=== PATIENT | female | born 1935 | race Caucasian/White ===

== ENCOUNTER 2017-04-19 19:31 | Emergency (ER) | payer MEDICARE, OTHER ==
[~2017-04-19] VITALS: Ht 167.6 cm; Wt 66.6 kg
[~2017-04-19 19:31] MED LIST: METOPROLOL; SIMVASTATIN
[2017-04-19 19:35] VITALS: Ht 167.6 cm; Wt 66.6 kg
--- NOTE | 2017-04-19 20:34 | ERD ---
ER Documentation Chief Complaint Chief Complaint toothache- molar pain HPI 81-year-old female presents emergency department for a right sided jaw pain/ mandibular pain for about 2 days. Pain on range of motion tenderness to palpation. Denies headache, dizziness, blurry vision, neck pain, throat pain, difficulty swallowing, trauma, injury, falls, shoulder pain, chest pain, back pain, abdominal pain, nausea, vomiting, diarrhea, loss of bowel bladder control , difficulty walking, numbness or tingling sensation, fever, chills. ROS All systems reviewed and are negative except as per history of present illness. Medications Home Meds Active Scripts Hydrocodone/Acetaminophen (Temple 5-325 Tablet) 1 Each Tablet, 1 TAB PO Q6H Y for PAIN, #5 TAB Prov:CHAITANYAJESUSITADEQUAN F 04/19/17 Acetaminophen* (Tylophen*) 500 Mg Capsule, 1 CAP PO Q6H Y for PAIN AND OR ELEVATED TEMP, #20 CAP Prov:PAULAILABANJADONAR F 04/19/17 Reported Medications [Metoprolol,Simvastat] No Conflict Check 06/09/10 Allergies Allergies: Coded Allergies: No Known Allergy (Unverified , 04/19/17) PMhx/Soc History of Surgery: Yes (HEART,IVON) Anesthesia Reaction: No Hx Neurological Disorder: No Hx Respiratory Disorders: No Hx Cardiac Disorders: Yes (HTN) Hx Psychiatric Problems: No Hx Miscellaneous Medical Probl: No Hx Alcohol Use: No Hx Substance Use: No Hx Tobacco Use: No Smoking Status: Never smoker Physical Exam Vitals Vital Signs Date Time Temp Pulse Resp B/P Pulse Ox O2 Delivery O2 Flow Rate FiO2 04/19/17 22:50 79 20 148/92 100 Room Air 04/19/17 19:35 97.4 91 20 175/90 100 Physical Exam Const: Well-appearing. Not in acute respiratory distress. Head: Atraumatic Eyes: Normal Conjunctiva. PERRLA. ENT: Normal External Ears, Nose and Mouth. No signs of tooth avulsions. No gingivitis. No tooth or gum abscess. Good and full range of motion of bilateral jaw/mandibles. No signs of dislocation. Neck: Full range of motion..~ No meningismus. No signs of meningeal irritation. Resp: Clear to auscultation bilaterally Cardio: Regular rate and rhythm, no murmurs Abd: Soft, non tender, non distended. Normal bowel sounds Skin: No petechiae or rashes Back: No midline or flank tenderness Ext: No cyanosis, or edema Neur: Awake and alert Psych: Normal Mood and Affect Results 24 hrs Current Medications Medications (Trade) Dose Ordered Sig/Rufina Route PRN Reason Start Time Stop Time Status Last Admin Dose Admin Acetaminophen (Tylenol Tab) 650 mg ONCE ONCE PO 04/19/17 21:00 04/19/17 21:01 DC 04/19/17 20:36 Acetaminophen/ Hydrocodone Bitart (Temple (5/325)) 1 tab ONCE ONCE PO 04/19/17 23:00 04/19/17 23:00 DC 04/19/17 22:51 Procedures/MDM X-ray of the mandible: No acute fracture dislocation. Unremarkable examination. Differential diagnosis: I have low suspicion for TMJ, mandibular fracture, meningitis, otitis media given the physical exam and x-ray results. Final diagnosis: Jaw pain. Follow-up with PCP in the next 3-4 days. PCP to refer patient to dentist in the next 3-4 days. Come back here in the emergency department for any new symptoms or any worsening of symptoms. All questions and concerns were answered. Patient verbalized understanding and agreed with the plan of care. Hemodynamically stable on discharge. Departure Diagnosis: Primary Impression: Jaw pain Condition: Stable Additional Instructions: Follow-up with PCP in the next 3-4 days. PCP to refer patient to dentist in the next 3-4 days. Come back here in the emergency department for any new symptoms or any worsening of symptoms. All questions and concerns were answered. Patient verbalized understanding and agreed with the plan of care DEQUAN BUSH Apr 19, 2017 20:34
[2017-04-19] MEDS ORDERED: ACETAMINOPHEN 325 MG TAB PO ONE (21:00)
--- NOTE | 2017-04-19 21:42 | RADRPT ---
PROCEDURE: XR minimal. CLINICAL INDICATION: mandibular pain/jaw pain TECHNIQUE: AP and lateral views of the minimal were performed. COMPARISON: None. FINDINGS: There is normal mineralization and alignment. No fracture or osseous lesion is identified. The joint s are normal. The soft tissues are unremarkable. IMPRESSION: No acute fracture or dislocation. Unremarkable examination. RPTAT: HBST .Nayan Lacy MD, MD Date Time Electronically viewed and signed by .Nayan Lacy MD, on 04/19/2017 21:42 .T/
[2017-04-19] MEDS ORDERED: ACET500C5 PO (22:27)
[2017-04-19] MEDS ORDERED: HYDR-906 PO (22:48)
[2017-04-19 22:50] VITALS: BP 148/92; PULSE 79; RESP 20
[2017-04-19] MEDS ORDERED: HYDROCODONE/APAP (5/325) TAB PO ONE (23:00)
== END 2017-04-19 22:50 | disposition home or self-care (01) ==
LOC: FTE 19:31
DX: R68.84 Jaw pain (principal); I10 Essential (primary) hypertension
CPT/HCPCS: 70110